=== PATIENT | female | born 1965 | race Caucasian/White ===

== ENCOUNTER 2016-11-09 11:51 | Emergency (ER) | payer OTHER ==
[~2016-11-09] VITALS: Ht 167.6 cm; Wt 85.7 kg
[2016-11-09 11:57] VITALS: BP_SYST 140
[2016-11-09 12:25] VITALS: BP_SYST 118
== END 2016-11-09 12:25 | disposition home or self-care (01) ==
LOC: SED 11:51
DX: R00.2 Palpitations (principal); I10 Essential (primary) hypertension
CPT/HCPCS: 99283